=== PATIENT | male | born 1970 | race Caucasian/White ===

== ENCOUNTER → 2017-03-08 | Outpatient (CLI) | payer BC | LOC: FIMAGING 15:30 | PROVIDERS: ATTEND Surgery | DX: M79.605 Pain in left leg (principal); M79.89 Other specified soft tissue disorders ==

== ENCOUNTER 2017-03-13 07:19 | Day surgery (SDC) | payer BC ==
[2017-03-13] MEDS ORDERED: ONDANSETRON 4 MG/2 ML VIAL ONE (08:24)
[2017-03-13] MEDS ORDERED: FLUMAZENIL 0.5 MG/5 ML MDV IVP ONE (08:24)
[2017-03-13] MEDS ORDERED: MIDAZOLAM 2 MG/2 ML VIAL ONE (08:24)
[2017-03-13] MEDS ORDERED: NALOXONE HCL 0.4 MG/ML INJ ONE (08:24)
[2017-03-13] MEDS ORDERED: fentaNYL 100 MCG/2 ML INJ ONE (08:25)
[2017-03-13] MEDS ORDERED: IOPAMIDOL (ISOVUE-M 300) 15 ML VIAL IV ONE (10:29)
[2017-03-13] MEDS ORDERED: IOPAMIDOL (ISOVUE-300) 100 ML BTL IV ONE (10:32)
== END 2017-03-13 12:25 | disposition home or self-care (01) ==
LOC: FIMAGING 07:19
PROVIDERS: ATTEND Family Medicine
PROC: B51C1ZZ Fluoroscopy of Left Lower Extremity Veins using Low Osmolar Contrast (ICD-10-PCS; principal; 2017-03-13 10:13)
DX: R60.0 Localized edema (principal); Z95.820 Peripheral vascular angioplasty status with implants and grafts
CPT/HCPCS: 36011; 75820; C1769; J1644; J2250; J2310; J2405; J3010; Q9967